=== PATIENT | male | born 1955 | race Caucasian/White ===

== ENCOUNTER → 2018-04-13 | Outpatient (CLI) | payer OTHER ==
[~2018-04-13] MED LIST: ASPI-496 PO; LISI5TAB7 PO; OMEP20TA62 PO
[2018-04-13 08:51] LABS: ALANINE AMINOTRANSFERASE 41 U/L (12-78); ANION GAP 6 mmol/L (5-15); CALCIUM 9.1 mg/dL (8.5-10.1); CHLORIDE 107 mmol/L (98-107); CREATININE 0.87 mg/dL (0.7-1.3)
[2018-04-13 08:55] LABS: ALKALINE PHOSPHATASE 64 U/L (45-117); BILIRUBIN,TOTAL 0.5 mg/dL (0.2-1.0); TOTAL PROTEIN 7.3 g/dL (6.4-8.2)
== END | disposition home or self-care (01) ==
LOC: STAR 07:29
PROVIDERS: ATTEND Thoracic Surgery (Cardiothoracic Vascular Surgery)
DX: Z01.818 Encounter for other preprocedural examination (principal); K46.9 Unspecified abdominal hernia without obstruction or gangrene
CPT/HCPCS: 36415; 80053; 93005

== ENCOUNTER 2018-04-20 06:03 | Day surgery (SDC) | payer OTHER ==
[2018-04-13 08:18] VITALS: BP 133/81
[~2018-04-20] VITALS: Ht 180.3 cm; Wt 99.0 kg
[2018-04-20] MEDS ORDERED: MIDAZOLAM 1 MG/ML, 2ML ONE (06:11)
[2018-04-20] MEDS ORDERED: FENTANYL PF 100 MCG/2ML ONE ×2 (06:11→08:23)
[2018-04-20] MEDS ORDERED: LACTATED RINGERS 1,000 ML IV SCH ×2 (06:43→08:11)
[2018-04-20] MEDS ORDERED: GABAPENTIN 300 MG CAPSULE PO ONE (07:00)
[2018-04-20] MEDS ORDERED: EPHEDRINE 50 MG/ML, 1ML IM PRN (07:00)
[2018-04-20] MEDS ORDERED: ACETAMINOPHEN 500 MG TABLET PO ONE (07:00)
[2018-04-20] MEDS ORDERED: DIPHENHYDRAMINE 50 MG/ML, 1ML IVPush PRN (07:00)
[2018-04-20] MEDS ORDERED: FENTANYL PF 100 MCG/2ML IV PRN (07:00)
[2018-04-20] MEDS ORDERED: ONDANSETRON ODT 8 MG PO ONE (07:00)
[2018-04-20] MEDS ORDERED: PROMETHAZINE 25 MG SUPP PR PRN (07:00)
[2018-04-20] MEDS ORDERED: MEPERIDINE/PF 25MG/0.5ML IVPush PRN (07:00)
[2018-04-20] MEDS ORDERED: KETOROLAC 30 MG/1 ML IV PRN (07:00)
[2018-04-20] MEDS ORDERED: HYDROmorphone 1 MG/ML, 1ML IV PRN (07:00)
[2018-04-20] MEDS ORDERED: LABETALOL 5MG/ML, 20ML IV PRN (07:00)
[2018-04-20] MEDS ORDERED: BUPIVACAINE/PF-EPI 0.5% 1:200K ONE (07:07)
[2018-04-20] MEDS ORDERED: CEFAZOLIN 1,000 MG ONE (07:30)
[2018-04-20] MEDS ORDERED: PROPOFOL 10 MG/ML, 20ML ONE (07:30)
[2018-04-20] MEDS ORDERED: DEXAMETHASONE 4 MG/ML, 1ML ONE (07:30)
[2018-04-20] MEDS ORDERED: KETOROLAC 30 MG/1 ML ONE (08:23)
[2018-04-20] MEDS ORDERED: OXYcodone 5 MG/5 ML ORAL.SOL UDC ONE (08:24)
[2018-04-20] MEDS ORDERED: ONDANSETRON 2MG/ML, 2ML IVPush PRN (08:30)
[2018-04-20] MEDS ORDERED: morphine SULFATE 10 MG/ML, 1ML IVPush PRN (08:30)
[2018-04-20] MEDS ORDERED: HYDROcodone/APAP 5/325 TABLET PO PRN (08:30)
[2018-04-20] MEDS: OXYcodone 5 MG/5 ML ORAL.SOL UDC PO PRN ×2 (08:36→11:34)
== END 2018-04-20 12:00 | disposition home or self-care (01) ==
LOC: OUT 06:03
PROVIDERS: ATTEND Thoracic Surgery (Cardiothoracic Vascular Surgery)
DX: K42.0 Umbilical hernia with obstruction, without gangrene (principal); I10 Essential (primary) hypertension; E66.9 Obesity, unspecified; Z68.30 Body mass index [BMI] 30.0-30.9, adult; Z79.899 Other long term (current) drug therapy; Z79.82 Long term (current) use of aspirin
CPT/HCPCS: 49587; C1781; J0690; J1100; J1885; J2250; J2704; J3010; J7120; Q0162

== ENCOUNTER 2021-02-03 08:35 | Emergency (ER) | payer MEDICARE, OTHER ==
[~2021-02-03] VITALS: Ht 180.3 cm; Wt 97.2 kg
--- NOTE | 2021-02-03 09:20 | NUR ---
PT STATES WENT TO [facility] YESTERDAY GOT HOME TOOK A NAP AND WOKE UP AT 0800 STATES A LITTLE PRESSURE IN CHEST, AND A LITTLE BIT OF A BRUNSON. PT STATES HAS BEEN UNDER A LOT OF STRESS FROM WORK. PT CHECKS PULSE AND BP EVERY MORINING. PT WEARS 2L OXYGEN AT NIGHT FOR SHALLOW BREATHING, DENIES ASTHMA. STATES HAS HAD HX OF AFIB PT TAKES BABY ASPRIN, AND 20 MG LISINOPRIL DAILY
--- NOTE | 2021-02-03 09:20 | NUR ---
PT STATES WAS DIAGNOSED WITH A FIB AT AN URGENT CARE 5 YEARS AGO. SAME SYMPTOMS TODAY HAPPEN BEFORE CHRISTIMAS, PT BELIEVES IT IS STRESS RELATED.
--- NOTE | 2021-02-03 09:21 | NUR ---
PROVIDER AT BEDSIDE TO DO EVALUATION
--- NOTE | 2021-02-03 09:21 | NUR ---
PT HOOKED UP TO HEART MONITOR AND VSS CONTINAL MONITOR.
[2021-02-03] MEDS ORDERED: DILTIAZEM 5 MG/ML, 5ML ONE (09:50)
[2021-02-03] MEDS ORDERED: DILTIAZEM 5 MG/ML, 5ML IVPush ONE (10:00)
[2021-02-03] MEDS ORDERED: PROCAINAMIDE HCL IV ONE ×2 (10:00→10:30)
[2021-02-03] MEDS ORDERED: SODIUM CHLORIDE 0.9% 1,000ML IVBOLUS ONE (10:00)
[2021-02-03] MEDS ORDERED: SODIUM CHLORIDE 0.9% IV ONE ×2 (10:00→10:30)
[2021-02-03 10:09] LABS: BASOPHILS % (AUTO) 1 % (0-1); EOSINOPHILS % (AUTO) 1 % (1-7); LYMPHOCYTES % (AUTO) 18 % (22-44); MEAN CORPUSCULAR HEMOGLOBIN 30.9 pg (27.5-34.5); MEAN CORPUSCULAR HGB CONC 34.3 g/dL (33.2-36.2); MEAN PLATELET VOLUME 7.7 fL (7.4-10.4); MONOCYTES % (AUTO) 9 % (2-9); NEUTROPHILS % (AUTO) 71 % (42-75); PLATELET COUNT 208 x10^3/uL (130-400); RED BLOOD COUNT 4.88 x10^6/uL (4.38-5.82)
--- NOTE | 2021-02-03 10:11 | NUR ---
PT STATES NO CHEST PAIN, "JUST A LITTLE PRESSURE, LIKE INDIGESTION." WILL CONTINUE TO MONITOR CALL REMOTE WITHIN REACH.
[2021-02-03 10:23] LABS: ALANINE AMINOTRANSFERASE 36 U/L (12-78); ALBUMIN 3.6 g/dL (3.4-5.0); ANION GAP 4 mmol/L (5-15); CHLORIDE 109 mmol/L (98-107); CREATININE 0.79 mg/dL (0.7-1.3)
[2021-02-03 10:26] LABS: ALKALINE PHOSPHATASE 72 U/L (45-117); BILIRUBIN,TOTAL 0.5 mg/dL (0.2-1.0); TOTAL PROTEIN 6.9 g/dL (6.4-8.2)
--- NOTE | 2021-02-03 10:37 | NUR ---
NOTICED MEDICATION CONCENTRATION ON Bag was 8mg/ml. called pharmacy, Barry told me to cross of 8mg and put 4mg/ml, that this is the concentration that was sent "the 4mg/ml)
--- NOTE | 2021-02-03 10:48 | NUR ---
PRECEPTOR RN: THERE WAS A DISCREPANCY WITH LABEL AND CONCENTRATION MISMATCH FROM MAR. RO FROM PHARMACY WAS CONTACTED. PER JAYJAY, DOSE OF MEDICATION WAS CORRECT, HOWEVER, LABEL WAS MISLABELED. PER JAYJAY, CONCENTRATION WAS TO BE CROSSED OUT ON LABEL AND REWRITTEN BY TRAE LOVE RN. PER JAYJAY, INFUSION TO BE COMPLETED OVER 30 MINUTES ON IV PUMP SET TO INFUSE 250 ML AT A RATE OF 500 ML/HR. TOTAL INFUSION AT THIS RATE WOULD EQUAL 30 MINUTES REQUESTED BY ERP AND PHARMACY.
[2021-02-03 12:17] VITALS: BP 90/61
--- NOTE | 2021-02-03 12:17 | NUR ---
PRECEPTOR RN: PT D/C WITH D/C SUMMARY AND SCRIPTS. ALL QUESTIONS ANSWERED. PT VSS AND UPDATED IN EMR. PT AMBULATES TO REGISTRATION DESK WITH STEADY GAIT FOR D/C HOME WITH . PT DENIES ANY OTHER NEEDS PERTAINING TO THIS VISIT. PIV D/C WITH TIP INTACT PRIOR TO PT D/C.
== END 2021-02-03 12:26 | disposition home or self-care (01) ==
LOC: ED 12:20
DX: I48.0 Paroxysmal atrial fibrillation (principal); I48.92 Unspecified atrial flutter; I10 Essential (primary) hypertension; Z87.891 Personal history of nicotine dependence
CPT/HCPCS: 36415; 71045; 80053; 85025; 93005; 96361; 96365; 96375; 99285; J2690; J7030; J7050